=== PATIENT | female | born 1935 | race Caucasian/White ===

== ENCOUNTER 2017-09-05 05:40 | Emergency (ER) | payer MEDICARE, OTHER ==
[~2017-09-05] VITALS: Ht 167.6 cm; Wt 85.6 kg
[2017-09-05] MEDS ORDERED: LEVOTHYROXIN75 MCG PO (06:07)
[2017-09-05] MEDS ORDERED: LOSARTAN POTASS50 MG PO (06:07)
[2017-09-05] MEDS ORDERED: BISOPROL FUM10 MG PO (06:11)
[2017-09-05] MEDS ORDERED: HYDRALAZINE25 MG PO (06:13)
[2017-09-05] MEDS ORDERED: COUMADIN5 MG PO (06:15)
[2017-09-05] MEDS ORDERED: DIGOXIN0.125 MG PO (06:16)
[2017-09-05 07:11] LABS: HEMATOCRIT 37.3 % (37.0-47.0); HEMOGLOBIN 12.2 g/dl (12.0-16.0); IMMATURE GRANULOCYTES 0.4 % (0.0-1.0); MEAN CELL VOLUME 95.4 fL CALC (80.0-100.0); MEAN CORPUSCULAR HGB 31.2 pG CALC (26.0-32.0); MEAN CORPUSCULAR HGB CONC 32.7 g/L CALC (32.0-36.0); NEUT# 12.92 thou/uL (2.00-7.15); RED BLOOD COUNT 3.91 mill/uL (4.20-5.60); RED CELL DISTRI WIDTH 13.4 % (11.5-15.5)
[2017-09-05 07:23] LABS: ALBUMIN 3.9 g/dL (3.2-5.0); ALKALINE PHOSPHATASE 145 u/l (38-126); ANION GAP 12 (6-22 (CALC)); BILIRUBIN, TOTAL 1.1 mg/dL (0.0-1.4); BUN 12 mg/dL (8-23); BUN/CREATININE RATIO 16 (12-20 (CALC)); CARBON DIOXIDE 26 mmol/l (22-30); CHLORIDE 106 mmol/l (95-108); CREATININE 0.8 mg/dL (0.5-1.0); GFR > 60 ML/MIN (>=60 (CALC)); GFR FOR AFR.AMER. > 60 ML/MIN (>=60 (CALC)); GLUCOSE 125 mg/dL (82-115); POTASSIUM 4.2 mmol/l (3.5-5.1); SGOT/AST 24 u/l (9-36); SGPT/ALT 24 u/l (11-66); SODIUM 139 mmol/l (137-146); TOTAL PROTEIN 6.7 g/dL (6.3-8.2)
[2017-09-05 07:28] LABS: D-DIMER 0.23 mg/L (0.19-0.60); DIGOXIN 0.4 ng/mL (0.8-2.0); PROTHROMBIN TIME 22.1 SECONDS (9.0-12.5)
[2017-09-05 07:31] LABS: MYOGLOBIN 42 ng/mL (0 - 62)
[2017-09-05 07:54] LABS: TSH, 3RD GENERATION 2.66 uIU/mL (0.47 - 4.68)
[2017-09-05 07:55] LABS: URINE BLOOD DIPSTICK SMALL (NEGATIVE); URINE COLOR YELLOW; URINE GLUCOSE - DIPSTICK NEGATIVE (NEGATIVE); URINE KETONE TRACE mg/dL (NEGATIVE); URINE LEUK ESTERASE TRACE (NEGATIVE); URINE NITRITE - DIPSTICK NEGATIVE (Negative); URINE PH 5.5 (4.5-8.0); URINE PROTEIN - DIPSTICK 30 mg/dL (NEG-TRACE); URINE UROBILINOGEN - DIPSTICK 0.2 E.U./dL (0.2)
[2017-09-05 07:57] LABS: URINE CLARITY SL CLOUDY
[2017-09-05 07:58] LABS: URINE BILIRUBIN - DIPSTICK NEGATIVE (NEGATIVE)
[2017-09-05 08:01] LABS: URINE BACTERIA FEW hpf; URINE MUCUS MODERATE hpf (NONE-FEW); URINE SQUAMOUS EPITHELIAL CELL MODERATE EPI/hpf (0-FEW)
[2017-09-05] MEDS ORDERED: DOXYCYC MONO100 M1 PO (10:56)
[2017-09-05 11:02] VITALS: BP 167/75
== END 2017-09-05 11:10 | disposition home or self-care (01) ==
LOC: ED 05:40
PROVIDERS: Emergency Medicine; Family Medicine
DX: J06.9 Acute upper respiratory infection, unspecified (principal); R05 Cough; R07.81 Pleurodynia; M79.1 Myalgia; I10 Essential (primary) hypertension